=== PATIENT | male | born 1990 | race Caucasian/White ===

== ENCOUNTER 2023-03-02 08:54 | Emergency (ER) | payer OTHER, MEDICAID, SELFPAY ==
[2023-03-02 09:04] VITALS: PULSE 76; O2SAT 98
[2023-03-02 09:10] VITALS: BP 133/76; PULSE 78; RESP 16; TEMP 36.3; O2SAT 98; BMI 19.9
[2023-03-02 09:24] VITALS: BP 125/77; PULSE 65; O2SAT 98
[2023-03-02 09:30] VITALS: BP 120/78; PULSE 65; O2SAT 98
--- NOTE | 2023-03-02 09:31 | ED.NAVMDI ---
HPI - Nausea/Vomiting/Diarrhea General Chief complaint: Nausea/Vomiting/Diarrhea Stated complaint: unable to sleep t-4 Time Seen by Provider: 03/02/23 09:20 Source: patient Mode of arrival: Ambulatory History of Present Illness HPI Narrative: Patient 32-year-old male history of bipolar ADHD homeless but now he and his family are staying any senior care. In senior care he is not allowed to have marijuana he was a daily user he is not been using in over 1 week. He is not been able to sleep without it. He is starting to get very anxious and hallucinate. He is tried many [id number] medications. He wakes up feeling nauseous every morning. He reports having enough food. No fever chills no vomiting. He is a couple episodes of loose stool in the morning as well but not copious amounts of diarrhea. He is no abdominal pain. He is tearful upon questioning. 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 Related Data Previous Rx's Medication Instructions Recorded lorazepam 0.5 mg tablet (Ativan) 0.5 mg PO BEDTIME PRN sleep #3 tabs 03/02/23 melatonin 10 mg tablet 10 mg PO BEDTIME PRN sleep #30 tabs 03/02/23 ondansetron 4 mg disintegrating 4 mg PO Q8H PRN nausea and 03/02/23 tablet vomiting #10 tabs Review of Systems Review of Systems ROS Unobtainable: All systems reviewed & are unremarkable except as noted in HPI and below Patient History Social History Smoking Status: Current every day smoker Smoking Status: Current every day smoker tobacco type: vaping Substance Use Type: former substance user Exam Initial Vital Signs Initial Vital Signs: Vital Signs Pulse Rate 76 03/02/23 09:04 Pulse Oximetry 98 03/02/23 09:04 GENERAL: Thin 32-year-old male tearful HEENT: Head atraumatic,EOMI, pupils reactive, face symmetric, moist mucous membranes CARDIOVASCULAR: Regular rate and rhythm without murmurs, rubs or gallops. RESPIRATORY: Breath sounds equal bilaterally, no wheezes rales or rhonchi. ABDOMEN: Soft, nontender. Normoactive bowel sounds all 4 quadrants. No guarding or rebound. EXTREMITIES: Normal range of motion, no clubbing or edema. Neurovascularly intact NEUROLOGICAL: Alert and oriented x4. SKIN: Warm, dry, no laceration, no petechiae, no rashes or lesions. Course Orders Ordered: Discontinued Medications Ondansetron HCl (Ondansetron 4 Mg Odt) 4 mg SL NOW PRN PRN Reason: Nausea And Vomiting Ondansetron HCl (Ondansetron 4 Mg/2 Ml Inj) 4 mg IV NOW PRN PRN Reason: Nausea And Vomiting Vital Signs Vital signs: Vital Signs - 8 hr 03/02/23 09:10 03/02/23 09:04 03/02/23 09:24 Temperature 97.3 F L Pulse Rate 78 76 Respiratory Rate 16 Blood Pressure 133/76 125/77 Pulse Oximetry 98 98 Oxygen Delivery Method Room Air 03/02/23 09:24 03/02/23 09:30 03/02/23 09:30 Temperature Pulse Rate 65 65 Respiratory Rate Blood Pressure 120/78 Pulse Oximetry 98 98 Oxygen Delivery Method MDM - Nausea/Vomiting/Diarrhea Lab Data 03/02/23 09:25 03/02/23 09:25 Labs: Lab Results 03/02/23 03/02/23 Range/Units 09:25 09:25 WBC 5.7 (4.5-11.0) X10^3/uL RBC 4.92 (4.5-5.9) X10^6/uL Hgb 14.6 (13.5-17.5) g/dL Hct 43.5 (41-53) % MCV 88.5 (80-100) fL MCH 29.7 (26-34) PG MCHC 33.5 (30-36) % RDW 13.3 (11.6-14.8) % Plt Count 200 (150-400) X10^3/uL Neut % (Auto) 59.4 (50-75) % Lymph % (Auto) 29.7 (25-40) % [place] % (Auto) 8.0 (3-14) % Eos % (Auto) 2.0 (2-4) % Baso % (Auto) 0.9 (0-2) % Neut # (Auto) 3400 (7205-7956) /uL Lymph # (Auto) 1700 (7390-7100) /uL [place] # (Auto) 500 (0-900) /uL Eos # (Auto) 100 (0-450) /uL Baso # (Auto) 0 (0-100) /uL Sodium 140 (137-145) mmol/L Potassium 3.8 (3.4-5.1) mmol/L Chloride 107 (98-107) mmol/L Carbon Dioxide 25 (22-32) mmol/L BUN 12 (9-20) mg/dL Creatinine 0.79 (0.66-1.25) mg/dL Estimated GFR > 60 (>60) mL/min BUN/Creatinine Ratio 15.2 (6-22) Glucose 66 L (70-100) mg/dL Calcium 9.1 (8.4-10.2) mg/dL Total Bilirubin 0.5 (0.2-1.3) mg/dL AST 25 (17-59) IU/L ALT 20 (<50) IU/L Alkaline Phosphatase 61 (38-126) U/L Total Protein 7.4 (6.3-8.2) g/dL Albumin 4.4 (3.5-5.0) g/dL Globulin 3.0 (1.7-4.1) g/dL Albumin/Globulin Ratio 1.5 (1.0-2.8) Urine Dip Bedside Urine Glucose Negative Bedside Urine Bilirubin - Negative Bedside Urine Ketone - Negative Urine Specific [place] 1.010 Bedside Urine Occult Blood - Negative Bedside Urine pH 6.0 Bedside Urine Protein - Negative Bedside Urine Urobilinogen - Negative Bedside Urine Nitrite - Negative Bedside Urine Leukocytes - Negative Esterase MDM Narrative Medical decision making narrative: Patient 32-year-old male presents with nausea and diarrhea multiple mornings and insomnia. I suspect the insomnia secondary to THC withdrawal and lots of stress and anxiety. Blood work is reassuring however he is noted to be hypoglycemic at 64 but awake and alert drinking juice. Vitals are. No evidence of dehydration. At this time I will prescribe him 2 doses of Ativan so that he can sleep. We discussed [id number] melatonin and just time. Happy to give him a work note as well. Discharge Plan Departure Patient Disposition: Home Clinical Impression: Insomnia Instructions: DI for Insomnia Activity Restrictions/Additional Instructions: *You have been diagnosed with insomnia *What to do: At this time you are likely going through withdrawal. You were given only 2 pills of this medication to help you sleep. It can be addictive but it is to give you a break. Your body needs to get readjusted. *Continue to take medications as directed Melatonin 10 mg at night Ativan 0.5 mg at night (3 pills only, will not refill from ED) Zofran 4 mg in the morning as needed every 8 hours for nausea or vomiting *Follow up with your primary care provider in 2-3 days or call [phone] *Return to ER if you should have increasing hallucinations, weakness or any new, worsening or concerning symptoms Prescriptions: New melatonin 10 mg tablet 10 mg PO BEDTIME PRN (Reason: sleep) Qty: 30 0RF lorazepam [Ativan] 0.5 mg tablet 0.5 mg PO BEDTIME PRN (Reason: sleep) Qty: 3 0RF ondansetron 4 mg tablet,disintegrating 4 mg PO Q8H PRN (Reason: nausea and vomiting) Qty: 10 0RF Stand Alone Forms: Patient Portal/API, Work Release Note
[2023-03-02 09:37] LABS: Add Manual Diff / Slide Review NO; Basophils Absolute Auto 0 /uL (0-100); Basophils Percent Auto 0.9 % (0-2); Eosinophils Absolute Auto 100 /uL (0-450); Hematocrit 43.5 % (41-53); Hemoglobin 14.6 g/dL (13.5-17.5); Lymphocytes Absolute Auto 1700 /uL (1100-4500); Lymphocytes Percent Auto 29.7 % (25-40); Mean Corpuscular HGB Conc 33.5 % (30-36); Mean Corpuscular Hemoglobin 29.7 PG (26-34); Mean Corpuscular Volume 88.5 fL (80-100); Monocytes Absolute Auto 500 /uL (0-900); Neutrophils Absolute Auto 3400 /uL (1500-7000); Neutrophils Percent Auto 59.4 % (50-75); Platelet Count 200 X10^3/uL (150-400); Red Blood Cell Count 4.92 X10^6/uL (4.5-5.9); Red Cell Distribution Width 13.3 % (11.6-14.8); White Blood Cell Count 5.7 X10^3/uL (4.5-11.0)
[2023-03-02 09:57] LABS: Alanine Aminotransferase 20 IU/L (<50); Albumin 4.4 g/dL (3.5-5.0); Albumin Globulin Ratio 1.5 (1.0-2.8); Alkaline Phosphatase 61 U/L (38-126); Aspartate Aminotransferase 25 IU/L (17-59); BUN Creatinine Ratio 15.2 (6-22); Bilirubin Total 0.5 mg/dL (0.2-1.3); Blood Urea Nitrogen 12 mg/dL (9-20); Calcium 9.1 mg/dL (8.4-10.2); Carbon Dioxide 25 mmol/L (22-32); Chloride 107 mmol/L (98-107); Estimated Glomerular Filt Rate > 60 mL/min (>60); Glucose 66 mg/dL (70-100); HEMOLYSIS < 15 (0-50); Potassium 3.8 mmol/L (3.4-5.1); Sodium 140 mmol/L (137-145); Total Protein 7.4 g/dL (6.3-8.2)
[2023-03-02 10:00] VITALS: BP 124/71; PULSE 61; O2SAT 96
== END 2023-03-02 10:33 | disposition home or self-care (01) ==
PROVIDERS: Emergency Provider Emergency Medicine
DX: G47.00 Insomnia, unspecified (principal); F12.23 Cannabis dependence with withdrawal
CPT/HCPCS: 36415; 80053; 81003; 85025; 99283

== ENCOUNTER 2023-11-18 15:05 | Emergency (ER) | payer SELFPAY ==
[2023-11-18 15:08] VITALS: BP 136/79; PULSE 95; RESP 16; TEMP 36.8; O2SAT 98
--- NOTE | 2023-11-18 15:45 | PC.NURSE ---
shooting pain down back
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
--- NOTE | 2023-11-18 16:07 | DI.RAD.S_ITS ---
PROCEDURE: XR LUMBAR SPINE 2-3V INDICATIONS: low back pain with radiculopathy x 3 wks. No trauma. TECHNIQUE: 3 views of the lumbar spine were acquired. COMPARISON: None. FINDINGS: Bones: 5 [id number] vertebrae are present. There is normal bony alignment. Mild approximately 12? of convex right scoliosis. No vertebral body compression fractures. No suspicious bony lesions. Soft tissues: Overlying bowel gas pattern is normal. No suspicious soft tissue calcifications. IMPRESSION: No acute bony abnormality. Dictated by: Gissel Santo MD, PhD on 11/18/2023 at 16:27 Approved by: Gissel Santo MD, PhD on 11/18/2023 at 16:28
[2023-11-18 16:43] VITALS: BP 116/64; PULSE 79; RESP 16; O2SAT 95
== END 2023-11-18 16:54 | disposition home or self-care (01) ==
PROVIDERS: Emergency Provider Physician Assistant Medical; PCP Family Medicine
DX: S39.012A Strain of muscle, fascia and tendon of lower back, initial encounter (principal); X58.XXXA Exposure to other specified factors, initial encounter
CPT/HCPCS: 72100; 99281; 99283

== ENCOUNTER → 2023-12-18 10:57 | Outpatient (CLI) | payer OTHER, SELFPAY ==
[2023-12-18 15:42] LABS: COVID-19 CEPHEID 4-PLEX PCR Negative (Negative); Influenza A - CEPHEID Flu A NEGATIVE (NEGATIVE); Influenza B - CEPHEID Flu B NEGATIVE (NEGATIVE); Respiratory Syncytial Virus Negative (Negative)
== END ==
PROVIDERS: PCP Family Medicine; Visit Provider Nurse Practitioner Family
DX: R11.10 Vomiting, unspecified (principal); R19.7 Diarrhea, unspecified; J02.9 Acute pharyngitis, unspecified
CPT/HCPCS: 0241U

== ENCOUNTER → 2024-06-08 14:16 | Outpatient (CLI) | payer SELFPAY ==
[2024-06-08 18:07] LABS: Urine N gonorrhoeae NOT DETECTED
[2024-06-08 18:41] LABS: Urine Chlamydia NOT DETECTED
== END ==
PROVIDERS: PCP Family Medicine; Visit Provider Physician Assistant Medical
DX: A64 Unspecified sexually transmitted disease (principal)
CPT/HCPCS: 87491; 87591